=== PATIENT | male | born 1960 | race African-American/Black ===

== ENCOUNTER 2024-05-12 09:06 | Emergency (ER) | payer MEDICARE, OTHER ==
[~2024-05-12] VITALS: Ht 172.7 cm; Wt 89.2 kg
[2024-05-12 10:06] VITALS: BP 149/103; PULSE 113; RESP 18; TEMP 97.4; O2SAT 96
[2024-05-12 11:07] LABS: Chloride 104 mmol/L (98-107); Sodium 138 mmol/L (136-145)
[2024-05-12 11:08] LABS: Anion Gap 8 (5-15); Carbon Dioxide 26 mmol/L (20-30)
[2024-05-12 11:09] LABS: Calcium 9.8 mg/dL (8.7-10.4)
[2024-05-12 11:11] LABS: Basophils # (auto) 0 10 ^3/uL (0-0.2); Lymphocytes # (auto) 1.3 10 ^3/uL (0.4-5.4); Neutrophils # (auto) 7.3 10 ^3/uL (1.6-8.6); White Blood Cell 9.2 10^3/uL (4.4-10.8)
[2024-05-12 11:13] LABS: BUN/Creatinine Ratio 13.3 (10.0-20.0); Basophils % (auto) 0.4 % (0.0-2.0); Blood Urea Nitrogen 17 mg/dL (9-23); Eosinophils # (auto) 0 10 ^3/uL (0-0.8); Eosinophils % (auto) 0.5 % (0.0-7.0); Glucose 242 mg/dL (74-106); Hematocrit 51.4 % (41.0-53.0); Hemoglobin 17.5 g/dL (13.5-17.5); Lymphocytes % (auto) 14.1 % (10.0-50.0); Mean Corpuscular Hemoglobin 30.4 pg (28.0-32.0); Mean Corpuscular Hgb Conc. 34.1 g/dL (32.0-36.0); Mean Corpuscular Volume 89.1 fL (80.0-100.0); Monocytes # (auto) 0.5 10 ^3/uL (0-1.3); Monocytes % (auto) 5.8 % (0.0-12.0); Neutrophils % (auto) 79.2 % (37.0-80.0); Nucleated Red Blood Cells % 0.2 %; Platelet Count (auto) 243 10^3/uL (140-450); Red Blood Cells 5.76 10^6/uL (4.5-5.90); Red Cell Distribution Width 12.8 % (11.8-14.3)
[2024-05-12 11:26] LABS: INR 1.02 (0.9-1.15); Prothrombin Time 10.8 sec (9.3-11.8)
== END 2024-05-12 11:47 | disposition home or self-care (01) ==
LOC: ER 09:06
DX: R04.0 Epistaxis (principal)
CPT/HCPCS: 30901; 36415; 80048; 85025; 85610